=== PATIENT | male | born 1995 | race African-American/Black ===

== ENCOUNTER 2017-09-02 16:04 | Emergency (ER) | payer OTHER ==
[~2017-09-02] VITALS: Ht 175.3 cm; Wt 80.3 kg
[2017-09-02 16:16] VITALS: BP 154/79
== END 2017-09-02 18:19 | disposition home or self-care (01) ==
LOC: ER 16:04
DX: L02.512 Cutaneous abscess of left hand (principal)
CPT/HCPCS: 26010; 96372